=== PATIENT | male | born 1950 | race Caucasian/White ===

== ENCOUNTER 2018-10-27 06:27 | Inpatient (IN) ==
[2018-10-21 15:22] LABS: Basophils # (Auto) 0 K/mcL (0.0-0.3); Basophils % (Auto) 0.4 % (0.0-2.0); Eosinophils # (Auto) 0.4 K/mcL (0.0-0.7); Eosinophils % (Auto) 4.8 % (0.0-7.0); Granulocytes % (Auto) 60.6 % (38.0-78.0); Hematocrit 43.5 % (41.0-55.0); Hemoglobin 14.3 g/dL (13.5-16.5); Lymphocytes # (Auto) 2.2 K/mcL (1.5-4.8); Lymphocytes % (Auto) 28.9 % (15.5-49.0); Mean Cell Volume 92.8 fL (80.0-100.0); Mean Corpuscular HGB Conc 32.9 g/dL (31.0-36.0); Mean Platelet Volume 9.3 fL (7.4-10.4); Monocytes # (Auto) 0.4 K/mcL (0.1-0.9); Monocytes % (Auto) 5.3 % (1.0-12.0); Platelet Count 261 K/mcL (140-440); RBC 4.69 M/mcL (4.50-5.90); Red Cell Distribution Width 14.2 % (11.5-14.5); WBC 7.5 K/mcL (4.5-11.0)
[2018-10-21 15:26] LABS: Blood Urea Nitrogen 18 mg/dl (8-23); Calcium 8.7 mg/dl (8.6-10.4); Carbon Dioxide 24 mmol/L (22-30); Chloride 101 mmol/L (96-108); Glomerular Filtration Rate 69; Glucose 177 mg/dL (70-105)
[2018-10-21 16:56] LABS: Appearance,Urine CLEAR; Bilirubin,Urine NEG (NEG); Color,Urine YELLOW; Culture Indicated,Urine NO; Glucose,Urine (UA) 50 mg/dL (NEG); Ketones,Urine NEG (NEG); Leukocyte Esterase,Urine NEG /uL (NEG); Nitrate,Urine NEG (NEG); Protein,Urine NEG (NEG); Specific Gravity,Urine 1.023 (1.000-1.035); Urine Blood NEG mg/dL (<0.03); Urobilinogen,Urine NEG (NEG)
[~2018-10-27 06:27] MED LIST: CELECOXIB 200 MG CAPSULE PO SCH; PREGABALIN 75 MG CAPSULE PO SCH; SCOPOLAMINE 1 PATCH PATCH TOPICAL PRN; ceFAZolin 2 GM in DEXTROSE 5% IN WATER 50 ML IV SCH; oxyCODONE 10 MG TAB.ER.12H PO SCH
[2018-10-27] MEDS ORDERED: IPRATROPIUM/ALBUTEROL 3 ML AMPUL.NEB NEB PRN ×2 (06:30→10:45)
[2018-10-27] MEDS ORDERED: TRANEXAMIC ACID 1,000 MG/10 ML VIAL IV ONE (09:00)
[2018-10-27] MEDS ORDERED: fentaNYL 100 MCG/2 ML VIAL IV ONE (09:00)
[2018-10-27] MEDS ORDERED: LIDOCAINE HCL/PF 100 MG/5 ML SYRINGE IV ONE (09:00)
[2018-10-27] MEDS ORDERED: ROCURONIUM 10 MG/ML ML IV ONE (09:00)
[2018-10-27] MEDS ORDERED: ROPIVACAINE HCL/PF 30 ML VIAL IJ ONE (09:00)
[2018-10-27] MEDS ORDERED: PROPOFOL 200 MG/20 ML VIAL IV ONE (09:00)
[2018-10-27] MEDS ORDERED: HYDROmorphone 2 MG/ML VIAL IV ONE (09:00)
[2018-10-27] MEDS ORDERED: ATROPINE SULFATE 0.4 MG/ML VIAL IV ONE (09:00)
[2018-10-27] MEDS ORDERED: MIDAZOLAM 2 MG/2 ML VIAL IV ONE (09:00)
[2018-10-27] MEDS ORDERED: KETAMINE 100 MG/ML ML IV ONE (09:00)
[2018-10-27] MEDS ORDERED: NALBUPHINE 10 MG/ML AMPUL IV ONE (09:00)
[2018-10-27] MEDS ORDERED: GLYCOPYRROLATE 0.2 MG/ML VIAL IV ONE (09:00)
[2018-10-27] MEDS ORDERED: PHENobarb/HYOSCY/ATROPINE/SCOP 1 DOSE BOTTLE PO PRN (09:35)
[2018-10-27] MEDS ORDERED: GENTAMICIN SULFATE 800 MG/20 ML VIAL IR ONE (09:59)
[2018-10-27] MEDS ORDERED: MEPERIDINE 25 MG/ML SYRINGE IV PRN (10:45)
[2018-10-27] MEDS ORDERED: METHOCARBAMOL 1,000 MG/10 ML VIAL IV PRN (10:45)
[2018-10-27] MEDS ORDERED: BENZOCAINE/MENTHOL 1 LOZENGE PO PRN ×2 (10:45→10:46)
[2018-10-27] MEDS ORDERED: fentaNYL 100 MCG/2 ML VIAL IV PRN (10:45)
[2018-10-27] MEDS ORDERED: LACTATED RINGERS 1,000 ML IV SCH (10:45)
[2018-10-27] MEDS ORDERED: ACETAMINOPHEN 1,000 MG/100 ML BOTTLE IV ONE (10:45)
[2018-10-27] MEDS ORDERED: ONDANSETRON 4 MG/2 ML VIAL IV PRN ×2 (10:45→10:46)
[2018-10-27] MEDS ORDERED: KETOROLAC 15 MG/ML VIAL IV PRN ×2 (10:45→10:46)
--- NOTE | 2018-10-27 10:45 | Brief Operative Note ---
Date of procedure: 10/27/18 Pre-op diagnosis: right shoulder arthropathy with failed hemiarthroplaty Post-op diagnosis: same Procedure: right shoulder hardware removal, reverse total shoulder arthroplasty Grafts/Implants: Yes Anesthesia: GETA Complications: none Surgeon: Nathanael Ann Credit Officer: Louise Brooks Estimated blood loss (cc): 150 Specimens Removed/Pathology: none sent Condition: stable Disposition: PACU
[2018-10-27] MEDS ORDERED: ONDANSETRON 4 MG ODT TABLET SL PRN (10:46)
[2018-10-27] MEDS ORDERED: POLYETHYLENE GLYCOL 3350 17 GM PACKET PO PRN (10:46)
[2018-10-27] MEDS ORDERED: METHOCARBAMOL 750 MG TABLET PO PRN (10:46)
[2018-10-27] MEDS ORDERED: BISACODYL 10 MG SUPP.RECT PR PRN (10:46)
[2018-10-27] MEDS ORDERED: FLEETS ADULT ENEMA PR PRN (10:46)
[2018-10-27] MEDS ORDERED: MAGNESIUM HYDROXIDE 30 ML ORAL.SUSP PO PRN (10:46)
[2018-10-27] MEDS ORDERED: TRANEXAMIC ACID 1,000 MG/10 ML VIAL IV SCH (10:46)
--- NOTE | 2018-10-27 10:46 | Discharge Summary ---
Ortho Discharge - TSA - Patient Instructions Diet: Regular Diet Activity: non weight bearing Total Shoulder Protocol: Leave immobilizer in place except for bathing and ROM. Abduction pillow. Continue to wear sling until seen by physician. Codman Pendulum : These exercises use momentum produced by your body to move your shoulder joint. Bend your knees and shift your weight to your front leg, then back, allowing your arm to swing in the same directions. Using the same technique, alternately shift your weight between your right and left legs, allowing your arm to swing from side to side. These exercises are also performed in counterclockwise and clockwise circular motions. Typically these exercises are performed several times per day, for a set number repetitions or minutes, such as 20 times in a row or 5 minutes at a time. Dressing Care: May shower in 2 days - Follow Up Plan Follow Up Appointments: Louise Brooks PA-C [Physician Shaker Washer] - 11/11/18 11:20 am Disposition: Home, Self-Care Prognosis: Good Rehab Potential: Good I certify that the patient requires SNF services: No Overall status at discharge: patient is progressing back to baseline
[2018-10-27] MEDS ORDERED: METOPROLOL TARTRATE 5 MG/5 ML VIAL IV ONE (11:28)
[2018-10-27] MEDS ORDERED: LORazepam 2 MG/ML VIAL IV ONE (11:32)
--- NOTE | 2018-10-27 12:07 | XRay Report ---
CLINICAL INFORMATION: Post-OP Total Shoulder COMPARISON: None. FINDINGS: Total shoulder prostheses is anatomically aligned. No osseous abnormalities. Gas and soft tissue swelling seen in the expected IMPRESSION: Negative Interpreted and Authenticated by: Nathanael Morales 10/27/18
--- NOTE | 2018-10-27 12:10 | Operative Note ---
DATE OF OPERATION: 10/27/2018 PREOPERATIVE DIAGNOSIS: Failed right shoulder hemiarthroplasty with rotator cuff repair and retained hardware. POSTOPERATIVE DIAGNOSIS: Failed right shoulder hemiarthroplasty with rotator cuff repair and retrained hardware. PROCEDURE: 1. Right shoulder hardware removal of DePuy CTA head. 2. Right shoulder hardware removal of metal anchor from rotator cuff repair. 3. Right reverse total shoulder arthroplasty. SURGEON: Nichelle Ann M.D. STATE ATTORNEY SURGEON: Louise Brooks PA-C. The PA's assistance was required for the safe and efficient completion of the entire case. This provider's expertise and technical skill were required throughout the case. The PA assisted with preoperative coordination, intraoperative retraction, wound closure, dressing and splint application, as well as postoperative documentation and care coordination. ANESTHESIA: General. ESTIMATED BLOOD LOSS: 200 mL COMPLICATIONS: None noted. SPECIMENS REMOVED: Frozen section x2, cultures x1. DRAINS: None. IMPLANTS: DePuy Delta XTEND cementless metaglene MIRANDA coated; DePuy Delta XTEND locking metaglene screw 4.5 x 24 x2, 4.5 x 18 non-locking x2; DePuy Delta XTEND modular humeral stem MIRANDA coated cementless size 14; DePuy Delta XTEND modular eccentric epiphysis size 2 right MIRANDA coated cementless; DePuy Delta XTEND lateralized glenosphere +8 42 eccentric; DePuy Delta XTEND humeral polyethylene coat standard 42 +6. INDICATIONS: The patient had a previous rotator cuff repair which failed and then he went on to CTA head. Since then he has had significant erosion of the superior glenoid and failure of the rotator cuff. At this point we talked about different options, both conservative and the above surgical events, and he wished to proceed with surgical intervention. The risks and benefits were discussed with the patient in detail including, but not limited to, the risks of anesthesia, problems with the heart or lungs related to anesthesia, infection, compromise or injury to the nerves and blood vessels, deep venous thrombosis, pulmonary embolism, pneumonia, continued pain after surgery, worsening pain or symptoms after surgery, swelling, loss of motion, instability, fracture, arm length discrepancy, and need for repeat surgery. DESCRIPTION OF PROCEDURE: The patient was seen in the pre-anesthesia waiting room where all questions were answered and the correct side and site were identified and marked. The patient was transferred to the operating room and administered the anesthetic and given preoperative antibiotics. A time-out was then called. The patient was placed in the modified beach chair position with all prominences well padded. The extremity was prepped and draped from the fingers up to the neck. A standard deltopectoral skin incision was created. Dissection was carried down to the deltopectoral groove and the cephalic vein was isolated medially and retracted laterally with the deltoid. Retractors were placed and the coracobrachialis was split up to the coracoacromial ligament allowing retraction of the conjoined tendon. The supraspinatus and infraspinatus had been previously torn and retracted. The biceps was previously cut and not present in the intratubucular groove. A capsular release was performed in a posterior subperiosteal direction along the humerus. The humeral head was then dislocated. He had a CTA head. I used the flexible osteotomes all the way around the CTA head and then we were able to easily extract it. I took frozen specimens from the humeral canal and also from the area of the rotator cuff. These were sent and had less than 1 neutrophil/HPF with no inflammation. There was also a rotator cuff metallic anchor, which was removed. We established intramedullary access and hand reamed up to get good cortical chatter with the DePuy Delta XTEND reverse total shoulder instrumentation. We then used the intramedullary guide and set to about 5 degrees of retroversion. The proximal humerus cut was performed and osteophytes were removed. A metal protector plate was then placed. Attention was then turned to the glenoid. Retractors were placed for optimal visualization and the labrum was excised in its entirety. A centralizing Steinmann pin was placed just into the posterior inferior quadrant in a standard fashion, taking account for the significant erosion superiorly and posteriorly. We reamed over the pin to remove all the cartilage and get to a good base for the prosthesis. The drill was then placed over for the central peg. A cementless Metaglene was then impacted into place. We then drilled, measured, and placed the four screws starting inferior, then superior, then anterior, and finally posterior. The superior locking screw was lined up at the base of the coracoid process. We then impacted the head onto the Metaglene and tightened down in a standard fashion. Attention was then turned back to the humerus. Proximal reaming was performed off the intramedullary guide into the humeral head, using the eccentric guide to allow best coverage. We again set version and broached up to a stable implant. Trials were placed and good tension, motion, and stability were obtained at this point. Trials were removed and the final press fit femoral prosthesis was impacted into place with measured version. The final polyethylene was placed and the shoulder was reduced and again checked for motion, tension, and stability. We irrigated with 3 liters of antibiotic saline and closed the subscapularis with # 2 FiberWire. We irrigated again and closed the deltopectoral interval with several # 0 Vicryl figure of eight sutures. The subcutaneous layer was closed with 2-0 Vicryl and the skin was closed with 4-0 Monocryl in a subcuticular fashion. A sterile pressure dressing was applied and the patient was placed into an abduction sling. All needle and sponge counts were correct. The patient was transferred to the recovery room in stable condition. OBI:lacey Job ID: [id number] Doc ID: [id number] Nichelle Ann MD
[2018-10-27] MEDS: 0.9 % SODIUM CHLORIDE 1,000 ML IV SCH ×2 (13:25→22:02)
[2018-10-27] MEDS: 0.9 % SODIUM CHLORIDE 10 ML SYRINGE IV SCH ×2 (13:26→22:04)
[2018-10-27] MEDS: ceFAZolin 1 GM VIAL IV SCH (19:24)
[2018-10-27] MEDS ORDERED: ATORVASTATIN 20 MG TABLET PO SCH (21:00)
[2018-10-27] MEDS ORDERED: SENNOSIDES 1 TABLET PO SCH (21:00)
[2018-10-27] MEDS ORDERED: TAMSULOSIN 0.4 MG CAPSULE PO SCH (21:00)
[2018-10-27] MEDS ORDERED: DOCUSATE SODIUM 100 MG CAPSULE PO SCH (21:00)
[2018-10-27] MEDS: HYDROcodone/APAP 10/325MG TABLET PO PRN (21:16)
[2018-10-28] MEDS: ceFAZolin 1 GM VIAL IV SCH (02:29)
[2018-10-28] MEDS: HYDROcodone/APAP 10/325MG TABLET PO PRN ×4 (02:34→21:41)
[2018-10-28] MEDS: 0.9 % SODIUM CHLORIDE 10 ML SYRINGE IV SCH ×4 (04:42→21:45)
[2018-10-28] MEDS: 0.9 % SODIUM CHLORIDE 1,000 ML IV SCH (04:53)
[2018-10-28] MEDS ORDERED: POLYETHYLENE GLYCOL 3350 17 GM PACKET PO PRN (05:17)
[2018-10-28] MEDS ORDERED: KETOROLAC 15 MG/ML VIAL IV PRN (05:17)
[2018-10-28] MEDS ORDERED: FLEETS ADULT ENEMA PR PRN (05:17)
[2018-10-28] MEDS ORDERED: METHOCARBAMOL 750 MG TABLET PO PRN (05:17)
[2018-10-28] MEDS ORDERED: BISACODYL 10 MG SUPP.RECT PR PRN (05:17)
[2018-10-28] MEDS ORDERED: BENZOCAINE/MENTHOL 1 LOZENGE PO PRN (05:17)
[2018-10-28] MEDS ORDERED: 0.9 % SODIUM CHLORIDE 1,000 ML IV SCH (05:17)
[2018-10-28] MEDS ORDERED: ONDANSETRON 4 MG/2 ML VIAL IV PRN (05:17)
[2018-10-28] MEDS ORDERED: MAGNESIUM HYDROXIDE 30 ML ORAL.SUSP PO PRN (05:17)
[2018-10-28] MEDS ORDERED: ONDANSETRON 4 MG ODT TABLET SL PRN (05:17)
[2018-10-28 05:42] LABS: Hemoglobin 12.9 g/dL (13.5-16.5)
[2018-10-28 05:55] LABS: Basophils # (Auto) 0 K/mcL (0.0-0.3); Basophils % (Auto) 0.1 % (0.0-2.0); Eosinophils # (Auto) 0.1 K/mcL (0.0-0.7); Eosinophils % (Auto) 0.7 % (0.0-7.0); Granulocytes % (Auto) 77.5 % (38.0-78.0); Hematocrit 37.7 % (41.0-55.0); Hemoglobin 12.5 g/dL (13.5-16.5); Lymphocytes # (Auto) 1.4 K/mcL (1.5-4.8); Lymphocytes % (Auto) 12.5 % (15.5-49.0); Mean Cell Volume 92.7 fL (80.0-100.0); Mean Corpuscular HGB Conc 33.2 g/dL (31.0-36.0); Mean Platelet Volume 8.7 fL (7.4-10.4); Monocytes % (Auto) 9.2 % (1.0-12.0); Platelet Count 218 K/mcL (140-440); RBC 4.06 M/mcL (4.50-5.90); Red Cell Distribution Width 13.9 % (11.5-14.5); WBC 11.1 K/mcL (4.5-11.0)
[2018-10-28] MEDS ORDERED: IOPAMIDOL 100 ML BOTTLE IV ONE (06:08)
[2018-10-28 06:15] LABS: ALT/SGPT 20 U/l (0-40); AST/SGOT 20 U/l (0-37); Albumin 3.4 gm/dL (3.2-5.2); Albumin/Globulin Ratio 1.4 (1.0-2.3); Alkaline Phosphatase 50 U/L (39-117); Bilirubin,Direct < 0.2 mg/dL (0.0-0.3); Bilirubin,Total 0.4 mg/dL (0.0-1.0); Blood Urea Nitrogen 16 mg/dl (8-23); Calcium 8.2 mg/dl (8.6-10.4); Carbon Dioxide 22 mmol/L (22-30); Chloride 103 mmol/L (96-108); Globulin 2.4 gm/dL (2.2-3.7); Glomerular Filtration Rate 87; Glucose 131 mg/dL (70-105); Lactate Dehydrogenase 185 U/L (94-250); Phosphorous 3.7 mg/dL (2.7-4.5); Triglycerides 227 mg/dl (<150); proBNP 65.4 pg/ml (0-125)
[2018-10-28] MEDS ORDERED: diphenhydrAMINE 50 MG/ML VIAL IV ONE (06:33)
[2018-10-28 07:50] LABS: INR 1.1 (0.9-1.1); Prothrombin Time 14.1 sec (11.9-14.5)
--- NOTE | 2018-10-28 07:51 | Orthopedic Progress Note ---
Subjective Patient information: Note initiated : 10/28/18 at 7:48 am Service Date, if different from initiated Date: [] Patient: Abdirahman Brown 68 y/o M admitted on 10/27/18 for Right Reverse Total Shoulder Revision with . Chief Complaint: [1 day PO s/p right TSA Patient suffered fall yesterday after feeling dizzy. Hospitalist consulted and patient found to have PE. On telemetry now. Feels somewhat dizzy and light headed today. Denies CP, calf pain. Shoulder is sore but not horrible. Denies numbness or tingling] Objective Vital signs: Vital Signs Temp Pulse Pulse Resp BP Pulse Ox 10/28/18 07:00 98.1 F 71 20 134/85 91 10/28/18 03:59 74 20 133/87 88 L 10/28/18 03:00 97.9 F 69 16 126/77 92 10/27/18 23:00 98.1 F 66 16 122/74 92 10/27/18 19:10 98.1 F 81 16 131/80 94 10/27/18 16:45 97.6 F 59 L 20 144/90 95 10/27/18 15:10 54 L 138/83 99 10/27/18 14:55 55 L 134/83 98 10/27/18 14:40 62 142/88 98 10/27/18 14:25 57 L 140/88 96 10/27/18 14:10 56 L 144/88 96 10/27/18 13:55 55 L 145/89 97 10/27/18 13:40 57 L 134/87 96 10/27/18 13:26 58 L 12 137/77 95 10/27/18 13:25 58 L 137/77 95 10/27/18 13:10 58 L 143/80 94 10/27/18 12:55 55 L 148/87 93 10/27/18 12:40 53 L 12 149/91 92 10/27/18 12:30 97.5 F 56 L 12 139/82 92 10/27/18 12:16 97 F 54 L 14 151/93 96 10/27/18 12:05 55 L 12 152/92 98 10/27/18 11:55 57 L 16 150/95 95 10/27/18 11:45 55 L 16 131/92 95 10/27/18 11:35 61 16 170/103 95 10/27/18 11:25 97.5 F 80 14 165/100 94 10/27/18 11:20 177/91 10/27/18 11:15 80 20 158/84 95 10/27/18 11:10 80 18 144/92 98 10/27/18 11:05 70 18 160/94 100 10/27/18 11:02 97.2 F 87 14 142/93 6 L Intake and Output 10/27/18 10/28/18 10/28/18 21:59 05:59 13:59 Intake Total 1300 1006 Output Total 1325 575 Balance -25 431 Intake: IV 1000 856 Sodium Chloride 0.9% 1,000 ml @ 1000 856 125 mls/hr IV .Q8H SABA Rx#: [id number] Oral 300 150 Output: Urine Catheter Amount 675 Void Amount 650 575 Other: Meal Nourishment/Supplement Percent of Meal Consumed 100% Feeding Ability Assist with Tray Set Up Urine Appearance Clear Clear Straight Clear Urine Color Bright Yellow Pale Straight Straw Urine Odor Normal Normal # Bowel Movements 0 Intake & Output: Intake & Output 10/27/18 10/28/18 10/28/18 21:59 05:59 13:59 Intake Total 1300 1006 Output Total 1325 575 Balance -25 431 Intake: IV 1000 856 Sodium Chloride 0.9% 1,000 ml @ 1000 856 125 mls/hr IV .Q8H SABA Rx#: [id number] Oral 300 150 Output: Urine Catheter Amount 675 Void Amount 650 575 Other: Meal Nourishment/Supplement Percent of Meal Consumed 100% Feeding Ability Assist with Tray Set Up Urine Appearance Clear Clear Straight Clear Urine Color Bright Yellow Pale Straight Straw Urine Odor Normal Normal # Bowel Movements 0 Incision: Yes healing, No draining, No red, No swollen, No inflamed, Yes clean and dry Incision clean and dry: Yes Dressing: Yes clean, Yes dry, Yes intact, Yes splint in place Weight bearing status: non Neurological exam IM: Yes alert, Yes oriented X3, Yes motor sensory intact, Yes neurovascular intact Extremities exam IM: Yes Foot pink and warm, Yes neurovascular intact - Periperhal Pulses Peripheral pulses: 2+: radial (L), radial (R) - Labs CBC & BMP: 10/28/18 05:16 10/28/18 05:16 Labs: Orthopedic Labs 10/28/18 06:48 PT Pending INR Pending 10/28/18 10/28/18 10/21/18 05:16 04:30 13:33 Hgb 12.5 L 12.9 L 14.3 Hct 37.7 L 39.0 L 43.5 Assessment and Plan (1) Osteoarthritis, shoulder PO day #1 s/p right TSA: -NWB in sling with shoulder, PT -anticoags per hospitalist -d/c per hospitalist once clear from PE standpoint -dermabond -pain control Status: Acute
--- NOTE | 2018-10-28 08:25 | Ultrasound Report ---
CLINICAL INFORMATION: Multiple PE. Evaluate for DVT COMPARISON: None. FINDINGS: The entire deep venous system of the right leg including the common femoral, superficial femoral, popliteal and paired trifurcation calf veins are easily compressible and show normal venous blood flow on color and spectral Doppler. No evidence of thrombus. There is partial thrombus within one of the paired peroneal veins of the left calf. The remainder of the left lower deep venous system is widely patent IMPRESSION: Partial thrombus within one of the paired left peroneal veins. The remainder of the left and the entire entire right lower extremity deep venous system is widely patent Interpreted and Authenticated by: Nathanael Morales 10/28/18
[2018-10-28] MEDS: amLODIPine 5 MG TABLET PO SCH (08:43)
[2018-10-28] MEDS: DOCUSATE SODIUM 100 MG CAPSULE PO SCH ×2 (08:43→21:43)
[2018-10-28] MEDS: APIXABAN 5 MG TABLET PO SCH ×3 (08:44→21:42)
[2018-10-28] MEDS ORDERED: amLODIPine 5 MG TABLET PO SCH (09:00)
--- NOTE | 2018-10-28 09:46 | Internal Medicine Consult Note ---
Medical - CN: HPI - Data of Consult Consult date: 10/28/18 Requesting physician: Nathanael Ann Primary Care Provider: Merlin Staley Family Provider: Uriah Huffman - Consult Narrative Reason for consult: presyncope, Increased oxygen needs History of present illness: Mr. Brown is a 68 year old M with history of hypertension is admitted to the hospital for right-sided shoulder surgery, reverse arthroplasty. The patient underwent the procedure yesterday apparently without any complications or issues. Early this morning at around 5:00 the patient woke up, and was ambulating in the hallway, during this. He had an episode in which he was short of breath, dizzy nearly passed out, some nausea felt uneasy and some sweating. He was taken back to his bed and his symptoms abated. The patient also has increased oxygen needs, he was on 1 L of oxygen and the night at home he does not use any oxygen but was on 2 to 3 L of oxygen. He was hemodynamically stable at that point. Medicine was consulted for further evaluation. The patient denies any palpitations headache changes in vision, admits to having some dizziness but did not pass out, no difficulty in swallowing no chest pain, did but did feel he a bit short of breath during the episode, he denies any vom iting but was nauseous during that episode, no bowel bladder complaints. He denies any significant leg swelling joint pains or any other acute complaints or concerns. 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 On my evaluation patient was afebrile heart rate 74 blood pressure 133 x 87 on 2 L 88% Labs showed hemoglobin 12.5 hemoglobin 11.1 platelets 218 chemistries unremarkable BNP 65 troponin less than 0.01 EKG shows left axis sinus rhythm nonspecific intraventricular conduction delay no significant change from the previous EKG CT angios was done which showed the patient has pulmonary embolism bilaterally, DVT duplex lower extremity was done which showed that the patient has a DVT on the left peroneal vein. CC: Nathanael Ann All systems: reviewed and no additional remarkable complaints except as stated (As per HPI rest negative) Medical - CN: PMH Medical history: Hypertension, osteoarthritis, hyperlipidemia, impaired glucose tolerance, psoriasis, benign prostatic hypertrophy Surgical history: Patient has had spine surgery and shoulder surgery in the past Family history: reviewed and not pertinent Pertinent family history: No history of clots in the family Social history: Patient admits to social alcohol use denies any history of smoking or drug use Medical - CN: Meds Home Medications Medication Instructions Recorded Confirmed Type Atorvastatin [Lipitor] 20 mg PO HS 10/21/18 10/27/18 History Tamsulosin [Flomax] 0.4 mg PO HS 10/21/18 10/27/18 History amLODIPine [Norvasc] 5 mg PO DAILY 10/21/18 10/27/18 History HYDROcodone/APAP 10/325MG [Isom 1 - 2 tab PO Q4H PRN #60 tab 10/27/18 Rx 10-325Mg] Allergies Allergy/AdvReac Type Severity Reaction Status Date / Time shellfish derived Allergy Severe Anaphylaxis Verified 10/27/18 07:00 iodine [IODINE] AdvReac Severe hives, rash Verified 10/27/18 07:00 Medical - CN: Exam - Constitutional Vitals: Temp Pulse Resp BP Pulse Ox 98.1 F 71 20 134/85 92 10/28/18 07:00 10/28/18 07:00 10/28/18 07:00 10/28/18 07:00 10/28/18 08:00 Exam: GENERAL: The patient is a well-developed, well-nourished in no apparent distress. Is alert and oriented x3. VITAL SIGNS: Reviewed and as noted elsewhere. HEENT: Head is normocephalic and atraumatic. Extraocular muscles are intact. Pupils are equal, round, and reactive to light. Nares appeared normal. Mouth appears any without lesions. Mucous membranes are moist. NECK: Normal to inspection, Supple, No lymphadenopathy or thyromegaly. LUNGS: Air entry equal on both sides, no wheezing, crackles or rhonchi noted. No accessory muscles of respiration HEART: Regular rate and rhythm normal, S1 and S2 heard, no Gallop, S3 or Rub Noted, No Gross murmur heard. ABDOMEN: Soft, nontender, and nondistended. Positive bowel sounds. No hepatosplenomegaly was noted. EXTREMITIES: No cyanosis, clubbing, rash, lesionn, arturo pitting edema + NEUROLOGIC: Cranial nerves II through XII are grossly intact. Motor and Sensory System Grossly Intact PSYCHIATRIC: Normal affect, Normal Mood. Appropriate Behavior. SKIN: No ulceration or wounds noted, No jaundice, No rash noted. Medical - CN: Result - Labs CBC & Chem 7: 10/28/18 05:16 10/28/18 05:16 Labs: Short CBC 10/28/18 10/28/18 Range/Units 04:30 05:16 WBC 11.1 H (4.5-11.0) K/mcL Hgb 12.9 L 12.5 L (13.5-16.5) g/dL Hct 39.0 L 37.7 L (41.0-55.0) % Plt Count 218 (140-440) K/mcL BMP 10/28/18 05:16 Sodium 138 Potassium 4.4 Chloride 103 Carbon Dioxide 22 BUN 16 Creatinine 0.9 Glucose 131 H Calcium 8.2 L Cardiac Enzymes 10/28/18 Range/Units 05:16 Troponin T < 0.01 (0-0.03) ng/ml Liver Function 10/28/18 Range/Units 05:16 Total Bilirubin 0.4 (0.0-1.0) mg/dL Direct Bilirubin < 0.2 (0.0-0.3) mg/dL GGT 46 (8-61) U/L AST 20 (0-37) U/l ALT 20 (0-40) U/l Alkaline Phosphatase 50 (39-117) U/L Albumin 3.4 (3.2-5.2) gm/dL Medical - CN: A/P - Narrative A/P Narrative: A/P Acute pulmonary embolus, PESI score 98 Deep vein thrombosis -Pt on SCD post op -no h/o travel, -likely provoked from hospital stay -started on eliquis 10mg bid x 7 days, then 5mg bid x 6 months -Major risks benefits of the medication discussed, all questions answered. including risk for from severe bleed, and warning signs for bleeding, pt and family verbalized understanding. -monitor on telemetery for now, does not have significant clot burden on DVT scan Acute hypoxic respiratory failuire -due to PE, and some atelectasis, post op -Aggressive pulmonary toilet. HTN -BP stable, continue home meds DVT on eliquis Will d/c patient once off oxygen.
[2018-10-28] MEDS ORDERED: PNEUMOCOCCAL 23-VAL P-SAC VAC 0.5 ML SYRINGE IM ONE (10:00)
--- NOTE | 2018-10-28 10:10 | Cat Scan Report ---
CLINICAL INFORMATION: Chest pain COMPARISON: None. TECHNIQUE: 80 cc of Isovue-300 were injected intravenously. Using SmartPrep to maximize pulmonary artery opacification, 2.5 mm helical slices were obtained from the lung apices through the lung bases. Following reconstruction, 2.5 mm sagittal, coronal, and axial reformations were processed. The exam was reviewed at mediastinal, lung, and bone windows. The exam was performed using radiation dose optimization techniques including, but not limited to, automated exposure control, adjustment of the mA and/or kV according to patient size and use of iterative reconstruction technique. FINDINGS: Scattered acute pulmonary emboli are present: Subocclusive at the bifurcation of the left lower lobe pulmonary artery with extension into the superior, posterior, lateral and medial basilar segmental arteries. The anterior apical and posterior segmental right upper lobe branches, segmental and subsegmental lateral segmental right middle lobe branches, medial posterior and lateral basilar segment of the right lower lobe. The central pulmonary arteries are mildly enlarged: The main pulmonary diameter of 3 cm. This suggests pulmonary hypertension. There is slight asymmetric enlargement of the right atrial and ventricle cardiac chambers suggesting elevated right heart pressures. The thoracic aorta is normal in contour and caliber. There is no adenopathy in the mediastinal hilar or axillary region. Small hiatal hernia is noted - esophagus is otherwise normal. Thyroid is unremarkable. Pulmonary parenchymal windows show scattered subsegmental atelectasis in both posterior lower lobes, lingula and right middle lobe. No jaren infiltrates. Pleural spaces are normal. Bone windows show postoperative right total shoulder prostheses changes with moderate periarticular gas and soft tissue swelling as expected in the immediate postoperative period. Two loose bodies in the left subscapularis bursa range up to 14 mm. Images through the superior abdomen show no abnormality IMPRESSION: Multiple, predominantly segmental, pulmonary emboli in both lungs - as described. There is mild enlargement of the central pulmonary arteries and equivocal right heart enlargement suggesting mild pulmonary hypertension Scattered subsegmental in both lower lobes, lingula and right middle lobe. Moderately heavy fibrofatty and calcific plaque in all visualized coronary arteries. Consider cardiac stress testing as an outpatient. Two loose bodies in the left subscapularis bursa ranging up to 14 mm. Interpreted and Authenticated by: Nathanael Morales 10/28/18
[2018-10-28] MEDS ORDERED: ATORVASTATIN 20 MG TABLET PO SCH (21:00)
[2018-10-28] MEDS ORDERED: TAMSULOSIN 0.4 MG CAPSULE PO SCH (21:00)
[2018-10-28] MEDS ORDERED: SENNOSIDES 1 TABLET PO SCH (21:00)
[2018-10-29] MEDS: HYDROcodone/APAP 10/325MG TABLET PO PRN ×5 (04:39→20:07)
[2018-10-29 05:29] LABS: Hematocrit 39.8 % (41.0-55.0)
--- NOTE | 2018-10-29 07:08 | Orthopedic Progress Note ---
Orthopedics - Auxillary Note - Subjective Patient Information: Note initiated : 10/29/18 at 7:07 am Service Date, if different from initiated Date: [] Patient: Abdirahman Brown 68 y/o M admitted on 10/27/18 for Right Reverse Total Shoulder Revision with . Chief Complaint: MIld pain R shoulder bandages c/d/i niv-distal Vital Signs Temp Pulse Resp BP Pulse Ox 10/29/18 04:28 98.7 F 78 18 130/81 90 10/28/18 23:32 98.3 F 79 18 126/80 90 10/28/18 19:14 98.2 F 82 18 142/84 92 10/28/18 16:00 98.4 F 70 20 139/82 92 10/28/18 12:01 98.5 F 86 20 144/82 91 10/28/18 10:30 94 10/28/18 10:02 92 10/28/18 10:01 20 88 L 10/28/18 10:00 85 20 94 10/28/18 08:00 92 Intake and Output 10/28/18 10/29/18 10/29/18 21:59 05:59 13:59 Intake Total 1930 200 Output Total 2925 500 Balance -995 -300 Intake: Oral 1930 200 Output: Void Amount 2925 500 Other: Meal Dinner Percent of Meal Consumed 100% Urine Appearance Clear Clear Urine Color Pale Bright Yellow Urine Odor Normal # Voids 1 1 # Bowel Movements 0 Weight 222 lb Laboratory Results - last 24 hr 10/28/18 10/29/18 06:48 04:32 Hgb 13.0 L Hct 39.8 L PT 14.1 INR 1.1 2 days s/p R TSA-stable mobilize with PT discharge per hospitalist once stable from PE
[2018-10-29] MEDS: 0.9 % SODIUM CHLORIDE 10 ML SYRINGE IV SCH ×3 (07:41→20:07)
[2018-10-29] MEDS: DOCUSATE SODIUM 100 MG CAPSULE PO SCH ×2 (10:28→20:06)
[2018-10-29] MEDS: APIXABAN 5 MG TABLET PO SCH ×2 (10:28→20:06)
[2018-10-29] MEDS: amLODIPine 5 MG TABLET PO SCH (10:28)
--- NOTE | 2018-10-29 10:45 | Surgical Pathology Report ---
HISTOLOGY SPECIMEN MICROSCOPIC DIAGNOSIS SPECIMEN A - SOFT TISSUE, RIGHT SHOULDER ROTATOR CUFF, BIOPSY: -- FIBROVASCULAR AND MATURE ADIPOSE TISSUE WITH MILD CHRONIC INFLAMMATION. -- NO SIGNIFICANT ACUTE INFLAMMATION IDENTIFIED (LESS THAN 1 NEUTROPHIL/hpf). SPECIMEN B - BONE, RIGHT HUMERUS, BIOPSY: -- NO DIAGNOSTIC ALTERATIONS. -- NO SIGNIFICANT ACUTE INFLAMMATION IDENTIFIED (LESS THAN 1 NEUTROPHIL/hpf). (RLF:olga) INTRAOPERATIVE CONSULTATION FROZEN SECTION DIAGNOSES (Performed at [place], [place]) SPECIMEN A - ROTATOR CUFF, BIOPSY, FROZEN SECTION: -- NO SIGNIFICANT ACUTE INFLAMMATION. -- LESS THAN 1 NEUTROPHIL/hpf. SPECIMEN B - HUMERAL BONE, BIOPSY, FROZEN SECTION: -- NO SIGNIFICANT ACUTE INFLAMMATION. -- LESS THAN 1 NEUTROPHIL/hpf. (EBD:sln) GROSS DESCRIPTION Specimen A: Received fresh is one [place]-pink soft tissue fragment measuring 1 x 0.7 x 0.5 cm. Sectioned, entirely submitted for frozen section in one cassette. Specimen B: Received fresh is one fragment of [place]-red bony tissue that measures 2.2 x 0.7 x 0.5 cm. Entirely submitted for frozen section in one cassette. (EBD:sln) Electronically Signed by: Norma Griggs M.D.
--- NOTE | 2018-10-29 11:43 | Discharge Summary ---
Medical - DS: Prov Patient information: Note initiated : 10/29/18 at 11:40 am Service Date, if different from initiated Date: [] Patient: Abdirahman Brown 68 y/o M admitted on 10/27/18 for Right Reverse Total Shoulder Revision with . Chief Complaint: [] Date of admission: 10/27/18 06:27 Discharge date: 10/29/18 Primary care physician: Merlin Staley Consults: 10/28/18 05:02 Consult to Physician [CONS] Routine Comment: Consulting Provider: Carissa Covarrubias Reason For Exam: Physician to Consult Discharging clinician: Carissa Covarrubias Medical - DS: Meds - Discharge Medications Prescriptions: Apixaban [Eliquis] 5 mg PO BID #72 tab HYDROcodone/APAP 10/325MG [[place] 10-325Mg] 1 - 2 tab PO Q4H PRN #60 tab PRN Reason: Pain Active and Home Medications: Home Medications Atorvastatin [Lipitor] 20 mg PO HS 10/21/18 [History Confirmed 10/27/18 Last Taken 10/26/18] Tamsulosin [Flomax] 0.4 mg PO HS 10/21/18 [History Confirmed 10/27/18 Last Taken 10/26/18] amLODIPine [Norvasc] 5 mg PO DAILY 10/21/18 [History Confirmed 10/27/18 Last Taken 10/27/18] HYDROcodone/APAP 10/325MG [[place] 10-325Mg] 1 - 2 tab PO Q4H PRN #60 tab 10/27/18 [Rx Last Taken Unknown] Medical - DS: Hosp Hospital course: MMr. Brown is a 68 year old M with history of hypertension is admitted to the hospital for right-sided shoulder surgery, reverse arthroplasty. The patient underwent the procedure yesterday apparently without any complications or issues. Early this morning at around 5:00 the patient woke up, and was ambulating in the hallway, during this. He had an episode in which he was short of breath, dizzy nearly passed out, some nausea felt uneasy and some sweating. He was taken back to his bed and his symptoms abated. The patient also has increased oxygen needs, he was on 1 L of oxygen and the night at home he does not use any oxygen but was on 2 to 3 L of oxygen. He was hemodynamically stable at that point. Medicine was consulted for further evaluation. The patient denies any palpitations headache changes in vision, admits to having some dizziness but did not pass out, no difficulty in swallowing no chest pain, did but did feel he a bit short of breath during the episode, he denies any vomiting but was nauseous during that episode, no bowel bladder complaints. He denies any significant leg swelling joint pains or any other acute complaints or concerns. 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 On my evaluation patient was afebrile heart rate 74 blood pressure 133 x 87 on 2 L 88% Labs showed hemoglobin 12.5 hemoglobin 11.1 platelets 218 chemistries unremarkable BNP 65 troponin less than 0.01 EKG shows left axis sinus rhythm nonspecific intraventricular conduction delay no significant change from the previous EKG CT angios was done which showed the patient has pulmonary embolism bilaterally, DVT duplex lower extremity was done which showed that the patient has a DVT on the left peroneal vein. 10/29 Pt seen examined, no acute issues, no complaints, no bleeding reported pt ambulated hallway, oxygen saturation > 88 % at all times, mostly > 90 stable for discharge, will be discharged on oral eliquis 10mg bid x 7 days (total ) then 5mg bid x 6 months. No changes made to [facility] home meds. Avoid nsaids, asa while on this therapy Discharge diagnosis: DVT/PE, Shoulder surgery - Time Spent with Patient Total time spent providing and/or coordinating discharge services: Greater than 30 minutes Medical - DS: Exam - Constitutional Vitals: Vital Signs Temp Pulse Resp BP Pulse Ox 10/29/18 08:00 98.5 F 89 18 136/88 93 10/29/18 07:49 86 22 90 10/29/18 07:45 86 10/29/18 04:28 98.7 F 78 18 130/81 90 10/28/18 23:32 98.3 F 79 18 126/80 90 10/28/18 19:14 98.2 F 82 18 142/84 92 10/28/18 16:00 98.4 F 70 20 139/82 92 10/28/18 12:01 98.5 F 86 20 144/82 91 Intake and Output 10/28/18 10/29/18 10/29/18 21:59 05:59 13:59 Intake Total 1930 200 Output Total 2925 500 50 Balance -995 -300 -50 Intake: Oral 0 200 Output: Void Amount 2925 500 50 Other: Meal Dinner Percent of Meal Consumed 100% Urine Appearance Clear Clear Urine Color Pale Bright Yellow Urine Odor Normal # Voids 1 1 1 # Bowel Movements 0 Weight 222 lb Medical - DS: Data Labs on day of discharge: Labs from last 24 hours 10/29/18 04:32 Hgb 13.0 L Hct 39.8 L Medical - DS: A/P - Patient/Caregiver Discharge Instructions Activity: increase activity as tolerated Diet: Regular Diet Additional Instructions: Discharge Instructions: Do the exercises at home that physical therapy gave you. Take your prescription, photo ID, insurance cards, and current medication list with you to your first physical therapy appointment. Wear comfortable clothing for your physical therapy. You are scheduled to start physical therapy at [facility] ([phone]) on November 03 at 10:30 am, please arrive 15 minutes early for paperwork. Leave immobilizer in place except for bathing and ROM. No weight bearing with right arm/hand. Abduction pillow. Continue to wear sling until seen by physician. Codman Pendulum : These exercises use momentum produced by your body to move your shoulder joint. Bend your knees and shift your weight to your front leg, then back, allowing your arm to swing in the same directions. Using the same technique, alternately shift your weight between your right and left legs, allowing your arm to swing from side to side. These exercises are also performed in counterclockwise and clockwise circular motions. Typically these exercises are performed several times per day, for a set number repetitions or minutes, such as 20 times in a row or 5 minutes at a time. You have Dermabond (a dressing with a mesh-like appearance), DO NOT remove mesh. Cover site daily with gauze dressing. You may start showering on post op day #2. The Dermabond dressing can get wet, do not scrub dressing. Pat dry, then place new dry gauze and rewrap with BRENDA dressing. To avoid constipation while taking any narcotic pain medication, take an over the counter stool softener/laxative. Use ice packs as directed, on for 20 minutes at a time throughout the day. This and elevation will help with pain and swelling. Call your physician for fevers above 100.5 or pain not controlled by medication. Your prescriptions are with your discharge information. Some medications were electronically transmitted to your pharmacy of choice. Take Eliquis 2 tablets twice [10 mg] a day for 5 days, and then 1 tablet [5 mg] twice a day for total of 6 months Watch out for signs of bleeding, if you have uncontrolled bleeding, blood in the urine blood in the stools please stop the medication and go to the emergency room or call your primary provider Follow-up with your PCP in 1 week Avoid using aspirin, nonsteroidal anti-inflammatory drugs or other blood thinners while you are on Eliquis therapy If you develop shortness of breath chest pain or any other acute concerns please go back to the emergency room Prescriptions: HYDROcodone/APAP 10/325MG [Stewart 10-325Mg] 1 - 2 tab PO Q4H PRN #60 tab PRN Reason: Pain Other Amb Orders: Physical Therapy at Discharge - TSA Location: None Selected Brace/Splint Location: None Selected - Follow up Plan Follow up with: Louise Brooks PA-C [[facility]] - 11/11/18 11:20 am Disposition: Home, Self-Care Prognosis: Good Rehab Potential: Good I certify that the patient requires SNF services: No Overall status at discharge: patient is progressing back to baseline Medical - DS: Qual - VTE Deep Vein Thrombosis/Pulmonary Embolism Present on Admission: No
[2018-10-29] MEDS ORDERED: BISACODYL 10 MG SUPP.RECT PR PRN (13:05)
[2018-10-29] MEDS ORDERED: FLEETS ADULT ENEMA PR PRN (13:05)
[2018-10-29] MEDS ORDERED: POLYETHYLENE GLYCOL 3350 17 GM PACKET PO PRN (13:05)
[2018-10-29] MEDS ORDERED: ONDANSETRON 4 MG ODT TABLET SL PRN (13:05)
[2018-10-29] MEDS ORDERED: METHOCARBAMOL 750 MG TABLET PO PRN (13:05)
[2018-10-29] MEDS ORDERED: MAGNESIUM HYDROXIDE 30 ML ORAL.SUSP PO PRN (13:05)
[2018-10-29] MEDS ORDERED: ONDANSETRON 4 MG/2 ML VIAL IV PRN (13:05)
[2018-10-29] MEDS ORDERED: BENZOCAINE/MENTHOL 1 LOZENGE PO PRN (13:05)
[2018-10-29] MEDS ORDERED: SENNOSIDES 1 TABLET PO SCH (21:00)
[2018-10-29] MEDS ORDERED: TAMSULOSIN 0.4 MG CAPSULE PO SCH (21:00)
[2018-10-29] MEDS ORDERED: ATORVASTATIN 20 MG TABLET PO SCH (21:00)
[2018-10-30] MEDS: HYDROcodone/APAP 10/325MG TABLET PO PRN ×2 (04:18→11:36)
[2018-10-30] MEDS: 0.9 % SODIUM CHLORIDE 10 ML SYRINGE IV SCH (04:18)
[2018-10-30 05:20] LABS: Hematocrit 39.1 % (41.0-55.0); Hemoglobin 12.8 g/dL (13.5-16.5)
--- NOTE | 2018-10-30 07:10 | Orthopedic Progress Note ---
Subjective Patient information: Note initiated : 10/30/18 at 7:08 am Service Date, if different from initiated Date: [] Patient: Abdirahman Brown 68 y/o M admitted on 10/27/18 for Right Reverse Total Shoulder Revision with . Chief Complaint: [] Interval history: doing well. still waiting for sats to stabilize, shoulder feels great Objective Vital signs: Vital Signs Temp Pulse Resp BP Pulse Ox 10/30/18 06:51 97.6 F 71 18 124/82 91 10/30/18 04:33 95 10/30/18 04:25 97.5 F 76 22 144/85 91 10/29/18 23:14 98.2 F 76 22 140/84 93 10/29/18 18:43 98.4 F 84 24 H 139/82 100 10/29/18 16:00 98.7 F 77 18 153/89 90 10/29/18 15:30 89 L 10/29/18 12:00 98.0 F 86 18 143/90 92 10/29/18 10:15 22 88 L 10/29/18 08:00 98.5 F 89 18 136/88 93 10/29/18 07:49 86 22 90 10/29/18 07:45 86 Intake and Output 10/29/18 10/30/18 10/30/18 21:59 05:59 13:59 Intake Total 360 850 Output Total 1025 850 Balance -665 0 Intake: Oral 360 850 Output: Void Amount 1025 850 Other: Meal Dinner Percent of Meal Consumed 100% Feeding Ability Independent Urine Appearance Clear Urine Color Bright Yellow Bright Yellow Urine Odor Normal Normal Weight 222 lb 8 oz Intake & Output: Intake & Output 10/29/18 10/30/18 10/30/18 21:59 05:59 13:59 Intake Total 360 850 Output Total 1025 850 Balance -665 0 Weight 222 lb 8 oz Intake: Oral 360 850 Output: Void Amount 1025 850 Other: Meal Dinner Percent of Meal Consumed 100% Feeding Ability Independent Urine Appearance Clear Urine Color Bright Yellow Bright Yellow Urine Odor Normal Normal Incision: Yes healing Incision clean and dry: Yes Dressing: Yes clean, Yes dry, Yes intact Weight bearing status: non Neurological exam IM: Yes alert, Yes normal gait, Yes oriented X3, Yes motor sensory intact, Yes neurovascular intact Extremities exam IM: No calf tenderness, Yes normal inspection, Yes Foot pink and warm, Yes neurovascular intact - Labs CBC & BMP: 10/30/18 04:30 10/28/18 05:16 Labs: Orthopedic Labs 10/28/18 06:48 PT 14.1 INR 1.1 10/30/18 10/29/18 10/28/18 04:30 04:32 05:16 Hgb 12.8 L 13.0 L 12.5 L Hct 39.1 L 39.8 L 37.7 L 10/28/18 10/21/18 04:30 13:33 Hgb 12.9 L 14.3 Hct 39.0 L 43.5 Assessment and Plan (1) Osteoarthritis, shoulder pod 3 s/p reverse tsa nwb pain control dvt prophylaxis for PE await medical clearance before discharge Status: Acute
[2018-10-30] MEDS: APIXABAN 5 MG TABLET PO SCH (08:27)
[2018-10-30] MEDS: DOCUSATE SODIUM 100 MG CAPSULE PO SCH (08:27)
[2018-10-30] MEDS ORDERED: amLODIPine 5 MG TABLET PO SCH (09:00)
--- NOTE | 2018-10-30 09:56 | Internal Med Progress Note ---
Medical - PN: Subj Patient information: Note initiated : 10/30/18 at 9:54 am Service Date, if different from initiated Date: [] Patient: Abdirahman Brown 68 y/o M admitted on 10/27/18 for Right Reverse Total Shoulder Revision with . Chief Complaint: [] Interval history: Patients discharge held yesterday as oxygen saturation droped to 83% this AM back to baseline, seen by RT, and ambulated by RT, no need for any more oxygen therapy stable for d/c no changes in plan from yesterday. Pertinent ROS: Denies headache, dizziness Denies chest pain, palpitations Denies cough or shortness of breath Denies abdominal pain, nausea or vomiting. - Constitutional Vitals: Vital Signs Temp Pulse Resp BP Pulse Ox 97.6 F 71 18 124/82 95 10/30/18 06:51 10/30/18 06:51 10/30/18 06:51 10/30/18 06:51 10/30/18 08:44 Period Temp Pulse Resp BP Sys/Gallego Pulse Ox Last 24 Hr 97.5 F-98.7 F 71-86 18-24 124-153/82-90 88-100 Intake and Output 10/29/18 10/30/18 10/30/18 21:59 05:59 13:59 Intake Total 360 850 Output Total 1025 850 Balance -665 0 Weight 222 lb 8 oz Intake & Output: Intake & Output 10/29/18 10/30/18 10/30/18 21:59 05:59 13:59 Intake Total 360 850 Output Total 1025 850 Balance -665 0 Weight 222 lb 8 oz Intake: Oral 360 850 Output: Void Amount 1025 850 Other: Meal Dinner Percent of Meal Consumed 100% Feeding Ability Independent Urine Appearance Clear Urine Color Bright Yellow Bright Yellow Urine Odor Normal Normal Exam: Constitutional; Afebrile, cooperative, alert, not in distress. Respiratory system: Air Entry equal on both sides, No crackles or wheezing, no rhonchi. CVS- Rate rhythm regular, S1,S2 heard, no gallop, no rub. Abdomen- Soft nontender abdomen, no organomegaly, no tenderness, no guarding or rigidity, [employer]- AOOx3, moving all extremities, no gross focal deficit noted. Medical - PN: Obj Da - Labs CBC & Chem 7: 10/30/18 04:30 10/28/18 05:16 Labs: Abnormal Lab Results 10/30/18 10/29/18 10/28/18 04:30 04:32 05:16 WBC RBC Hgb 12.8 L 13.0 L Hct 39.1 L 39.8 L Lymph % (Auto) Gran # Lymph # (Auto) [place] # (Auto) Glucose 131 H Calcium 8.2 L Total Protein 5.8 L Triglycerides 227 H 10/28/18 10/28/18 05:16 04:30 WBC 11.1 H RBC 4.06 L Hgb 12.5 L 12.9 L Hct 37.7 L 39.0 L Lymph % (Auto) 12.5 L Gran # 8.6 H Lymph # (Auto) 1.4 L [place] # (Auto) 1.0 H Glucose Calcium Total Protein Triglycerides Meds: Medications Hydrocodone Bitart/Acetaminophen ([place] 10/325mg) 0 tab PO Q4HP PRN PRN Reason: PAIN LEVEL 3-6 Last Admin: 10/30/18 04:18 Dose: 1 tab Documented by: Amlodipine Besylate (Norvasc) 5 mg PO DAILY [facility] Last Admin: 10/30/18 08:28 Dose: 5 mg Documented by: Apixaban (Eliquis) 10 mg PO BID [facility] Stop: 11/03/18 09:01 Last Admin: 10/30/18 08:27 Dose: 10 mg Documented by: Atorvastatin Calcium (Lipitor) 20 mg PO [facility] Last Admin: 10/29/18 20:06 Dose: 20 mg Documented by: Bisacodyl (Dulcolax) 10 mg MS Q2-3DAYS PRN PRN Reason: Constipation Docusate Sodium (Colace) 100 mg PO BID [facility] Last Admin: 10/30/18 08:27 Dose: 100 mg Documented by: Magnesium Hydroxide (Milk Of Magnesia) 30 ml PO BIDP PRN PRN Reason: Constipation Methocarbamol (Robaxin) 750 mg PO Q6HP PRN PRN Reason: Muscle Spasm Morphine Sulfate (Morphine) 0 mg IV Q1HP PRN PRN Reason: PAIN LEVEL > 6 Ondansetron HCl (Zofran) 4 mg IV Q4HP PRN PRN Reason: Nausea And Vomiting Ondansetron HCl (Zofran Odt) 4 mg SL Q4HP PRN PRN Reason: Nausea And Vomiting Polyethylene Glycol (Miralax) 17 gm PO DAILYP PRN PRN Reason: Constipation Senna (Senokot) 2 tab PO [facility] Last Admin: 10/29/18 20:06 Dose: 2 tab Documented by: Sodium Biphosphate/Sodium Phosphate (Fleets Adult) 1 dose MS Q3-4DAYS PRN PRN Reason: Constipation Sodium Chloride (Saline Flush) 10 ml IV Q8 [facility] Last Admin: 10/30/18 04:18 Dose: 10 ml Documented by: Tamsulosin HCl (Flomax) 0.4 mg PO [facility] Last Admin: 10/29/18 20:06 Dose: 0.4 mg Documented by: Throat Lozenges (Cepacol) 1 lozenge PO PRN PRN PRN Reason: Sore Throat Medical - PN: A/P - Time Spent With Patient Total time spent is greater than 50% in coordination of care (as documented) at patient's floor/unit and/or counseling patient: - Narrative A/P Narrative: Acute hypoxic respiratory failure -resolved, off oxygen, due to pulmonary embolus Acute pulmonary embolus -provoked -on eliquis stable for discharge Medical - PN: Qual - VTE Deep Vein Thrombosis/Pulmonary Embolism Present on Admission: No
== END 2018-10-30 12:15 | disposition home or self-care (01) | DRG 483 ==
LOC: MEDSUR 06:27
PROVIDERS: ADMIT Orthopaedic Surgery Sports Medicine; ATTEND Internal Medicine